=== PATIENT | female | born 1990 | race Caucasian/White ===

== ENCOUNTER 2019-12-07 16:15 | Inpatient (IN) | payer OTHER ==
[~2019-12-07] VITALS: Ht 154.9 cm; Wt 62.1 kg
[2019-12-07] MEDS: RINGERS SOLUTION,LACTATED 1,000 ML IV SCH (16:49)
[2019-12-07] MEDS ORDERED: RINGERS SOLUTION,LACTATED 1,000 ML IV SCH (16:49)
[2019-12-07] MEDS ORDERED: OXYTOCIN 30 UNITS/LACT RINGERS 500 ML IV ONE (16:49)
[2019-12-07] MEDS ORDERED: RINGERS SOLUTION,LACTATED 1,000 ML IV PRN (16:49)
[2019-12-07] MEDS ORDERED: FentaNYL CITRATE-PF 100 MCG/2 ML VIAL IVP PRN (17:00)
[2019-12-07] MEDS ORDERED: MISOPROSTOL 25 MCG TABLET VG ONE (17:00)
[2019-12-07] MEDS ORDERED: MISOPROSTOL 25 MCG TABLET PR ONE (17:00)
[2019-12-07] MEDS ORDERED: CITRIC ACID/SODIUM CITRATE 30 ML SOLUTION UDCUP PO PRN (17:00)
[2019-12-07] MEDS ORDERED: METOCLOPRAMIDE HCL 5 MG/ML 2 ML VIAL IVP PRN (17:00)
[2019-12-07] MEDS ORDERED: TERBUTALINE SULFATE 1 MG/ML VIAL SQ PRN (17:00)
[2019-12-07] MEDS ORDERED: MISOPROSTOL 50 MCG TABLET PO ONE (17:00)
[2019-12-07] MEDS ORDERED: RINGERS SOLUTION,LACTATED 1,000 ML IV ONE (17:08)
[2019-12-07 18:03] LABS: BASOPHILS % (AUTO) 0.4 % (0.0-2.0); EOSINOPHILS % (AUTO) 0.4 % (1.0-6.0); HEMATOCRIT 35.7 % (36-46); HEMOGLOBIN 11.9 g/dL (12.0-16.0); LYMPHOCYTES # (AUTO) 1.9 K/uL (1.0-4.8); LYMPHOCYTES % (AUTO) 22.6 % (22.0-44.0); MEAN CORPUSCULAR HEMOGLOBIN 30.3 pg (26.0-34.0); MEAN CORPUSCULAR HGB CONC 33.4 G/dL (31.0-37.0); MEAN CORPUSCULAR VOLUME 91 fL (80-100); MONOCYTES # (AUTO) 0.5 K/uL (0.1-1.0); MONOCYTES % (AUTO) 6.5 % (2.0-9.0); NEUTROPHILS # (AUTO) 5.8 K/uL (1.8-7.7); NEUTROPHILS % (AUTO) 70.1 % (40.0-70.0); PLATELET COUNT (AUTO) 258 K/uL (150-450); RED BLOOD CELL COUNT(AUTO) 3.93 MIL/uL (4.00-5.20); RED CELL DISTRIBUTION WIDTH 13.9 % (11.5-14.5)
[2019-12-07] MEDS ORDERED: DINOPROSTONE 10 MG VAGINAL SUPPOSITORY VG ONE (18:45)
[2019-12-07] MEDS ORDERED: INFLUENZA VIRUS VACCINE QVS 2019-20 (3YR+)/PF 60 MCG/0.5 ML SYRINGE IM ONE (19:30)
[2019-12-07 20:00] VITALS: BP 123/79
[2019-12-07] MEDS ORDERED: OXYGEN THERAPY IH SCH (20:00)
[2019-12-08] MEDS: RINGERS SOLUTION,LACTATED 1,000 ML IV SCH (00:43)
[2019-12-08] MEDS ORDERED: ROPIVACAINE HCL/PF 0.2% 100 ML ED ONE (05:20)
[2019-12-08] MEDS ORDERED: ROPIVACAINE HCL/PF 0.2% 100 ML ED PRN (05:44)
[2019-12-08] MEDS ORDERED: NALBUPHINE HCL 10 MG/ML VIAL IVP PRN (05:45)
[2019-12-08] MEDS ORDERED: ONDANSETRON HCL 4 MG/2 ML VIAL IVP PRN (05:45)
[2019-12-08] MEDS ORDERED: DiphenhydrAMINE HCL 50 MG/ML VIAL IVP PRN (05:45)
[2019-12-08] MEDS ORDERED: OXYTOCIN 30 UNITS/LACT RINGERS 500 ML IV PRN (07:04)
[2019-12-08] MEDS ORDERED: AMPICILLIN SODIUM 2 GM/NS 100 ML IV ONE (17:45)
[2019-12-08] MEDS ORDERED: OXYTOCIN 30 UNITS/LACT RINGERS 500 ML IV ONE (21:17)
[2019-12-08] MEDS ORDERED: IBUPROFEN 800 MG TABLET PO PRN (21:30)
[2019-12-08] MEDS ORDERED: OxyCODONE HCL/ACETAMINOPHEN 5-325 MG TABLET PO PRN ×2 (21:30)
[2019-12-08] MEDS ORDERED: MAGNESIUM HYDROXIDE SUSPENSION 30 ML UDCUP PO PRN (21:30)
[2019-12-08] MEDS ORDERED: LANOLIN 7 GM OINTMENT TP PRN (21:30)
[2019-12-08] MEDS ORDERED: BENZOCAINE 20%/MENTHOL 56 GM SPRAY CANISTER TP PRN (21:30)
[2019-12-08] MEDS ORDERED: LIDOCAINE/PF 1% 30 ML VIAL INJ PRN (21:30)
[2019-12-08] MEDS ORDERED: GLYCERIN/WITCH HAZEL LEAF 40 PADS JAR TP PRN (21:30)
[2019-12-09 06:32] LABS: HEMATOCRIT 29.1 % (36-46); HEMOGLOBIN 9.8 g/dL (12.0-16.0); MEAN CORPUSCULAR VOLUME 91 fL (80-100); RED BLOOD CELL COUNT(AUTO) 3.21 MIL/uL (4.00-5.20)
[2019-12-09 06:33] LABS: BASOPHILS % (AUTO) 0.2 % (0.0-2.0); EOSINOPHILS % (AUTO) 0.1 % (1.0-6.0); LYMPHOCYTES # (AUTO) 2.1 K/uL (1.0-4.8); LYMPHOCYTES % (AUTO) 10.5 % (22.0-44.0); MEAN CORPUSCULAR HEMOGLOBIN 30.4 pg (26.0-34.0); MEAN CORPUSCULAR HGB CONC 33.6 G/dL (31.0-37.0); MONOCYTES # (AUTO) 1.2 K/uL (0.1-1.0); MONOCYTES % (AUTO) 6.3 % (2.0-9.0); NEUTROPHILS # (AUTO) 16.3 K/uL (1.8-7.7); NEUTROPHILS % (AUTO) 82.9 % (40.0-70.0); PLATELET COUNT (AUTO)-OB 205 K/uL (150-450); RED CELL DISTRIBUTION WIDTH 14.1 % (11.5-14.5)
== END 2019-12-10 11:30 | disposition home or self-care (01) | DRG 807 ==
LOC: OBSVTOIN 16:15 → 4S 16:15
PROVIDERS: ADMIT Obstetrics & Gynecology; ATTEND Obstetrics & Gynecology
PROC: 10E0XZZ Delivery of Products of Conception, External Approach (ICD-10-PCS; principal; 2019-12-08)
PROC: 0HQ9XZZ Repair Perineum Skin, External Approach (ICD-10-PCS; 2019-12-08)
PROC: 3E0R3BZ Introduction of Anesthetic Agent into Spinal Canal, Percutaneous Approach (ICD-10-PCS; 2019-12-08)
PROC: 00HU33Z Insertion of Infusion Device into Spinal Canal, Percutaneous Approach (ICD-10-PCS; 2019-12-08)
DX: O41.03X0 Oligohydramnios, third trimester, not applicable or unspecified (principal); Z37.0 Single live birth; O77.0 Labor and delivery complicated by meconium in amniotic fluid; O70.0 First degree perineal laceration during delivery; Z3A.39 39 weeks gestation of pregnancy
CPT/HCPCS: 86850; 86900; 86901; J0290; J2590; J2795; J7120